=== PATIENT | female | born 1940 | race Caucasian/White ===

== ENCOUNTER 2021-12-21 13:29 | Emergency (ER) | payer MEDICARE, OTHER ==
[2021-12-21] MEDS ORDERED: Ketorolac Tromethamine 30 MG/ML VIAL ONE (14:22)
[2021-12-21] MEDS ORDERED: Fentanyl 100 MCG/2 ML VIAL ONE (14:51)
[2021-12-21] MEDS ORDERED: Lorazepam (BATCHED) 2 MG/ML SYR ONE (14:54)
== END 2021-12-21 17:14 | disposition home or self-care (01) ==
LOC: ERS 13:29
DX: M79.661 Pain in right lower leg (principal); G89.29 Other chronic pain; I10 Essential (primary) hypertension; Z86.73 Personal history of transient ischemic attack (TIA), and cerebral infarction without residual deficits; Z87.891 Personal history of nicotine dependence; Z98.890 Other specified postprocedural states
CPT/HCPCS: 73564; J2060; 96374; 96375; J1885; J3010